=== PATIENT | female | born 2000 | race Caucasian/White ===

== ENCOUNTER → 2022-09-25 12:04 | Outpatient (BNVA) | payer BC, SELFPAY | PROVIDERS: Visit Provider Nurse Practitioner Family | DX: J02.9 Acute pharyngitis, unspecified (principal) | CPT/HCPCS: 87880 ==

== ENCOUNTER 2023-10-12 23:10 | Emergency (ER) | payer BC, SELFPAY ==
[2023-10-12 23:15] VITALS: BP 141/98; PULSE 83; RESP 18; TEMP 36.6; O2SAT 100
--- NOTE | 2023-10-13 01:11 | ED_ITS ---
HPI - Abdominal Pain 2 General: Chief Complaint: Abdominal Pain Stated Complaint: N/V Abd pain Time Seen by Provider: 10/12/23 23:55 History of Present Illness: Patient presents to the ER with episodic nausea vomiting and diarrhea with abdominal pain. This all started today. She says she is about ready start her period. She normally gets an episode like this 1 time when she starts her period but this is been multiple times throughout the day and worse in severity. Related Data: Date of Last Menstrual Period: 09/16/23 Review of Systems 2 General: Reports: 10 or more systems reviewed and unremarkable except in HPI and below [facility] 2 Female Reproductive History: Date of last menstrual period: 09/16/23 Physical Exam 2 Const: COMMON NORMALS: no acute distress, average body habitus, patient oriented x3, no limitations, healthy appearing, alert and well nourished HENMT: COMMON NORMALS: normocephalic, atraumatic, hearing grossly normal bilaterally, external ears normal, Normal external nose present and moist oral mucous membranes HEAD & SCALP: normocephalic and atraumatic NOSE: Normal external nose present EXTERNAL EAR: Yes external ears normal Neck/C-Spine: COMMON NORMALS: no JVD Resp: COMMON NORMALS: normal respiratory effort, No retractions, No use of accessory muscles and clear to auscultation bilaterally AUSCULTATION: clear to auscultation bilaterally Cardio: COMMON NORMALS: no JVD, regular rate, regular rhythm, S1 normal heart sound present, S2 normal heart sound present, No gallops present (Cardio), No clicks present (Cardio), No murmurs present (Cardio) and No rub (Cardio) R ATE: regular rate RHYTHM: regular rhythm HEART SOUNDS: S1 normal heart sound present and S2 normal heart sound present GI: COMMON NORMALS: Normal to inspection, nondistended, normoactive bowel sounds present, Soft to palpation, No hepatosplenomegaly present and no masses; negative for non-tender (Mildly tender to palpate upper abdomen worse over epigastric area) PALPATION: Yes Soft to palpation and Yes No hepatosplenomegaly present Neuro: COMMON NORMALS: patient oriented x3 SENSORIUM/ORIENTATION: Yes alert Course 2 Vital Signs: Vital signs: Vital Signs Temperature 97.9 F 10/12/23 23:15 Pulse Rate 80 10/13/23 01:30 Respiratory Rate 16 10/13/23 01:30 Blood Pressure 107/54 10/13/23 01:30 Pulse Oximetry 100 10/13/23 01:30 Oxygen Delivery Me thod Room Air 10/12/23 23:15 MDM - Abdominal Pain Medical Decision Making Patient has abdominal pain intermittently. Patient lab work did not include CBC CMP lipase and urinalysis, all of which was essentially benign, urinalysis did not show possibly urinary tract infection however was not a very good specimen. Will go ahead and treat as patient is having abdominal pain. Patient be discharged home. Differential Diagnosis Likely abdominal pain Medical Records I reviewed the patient's medical records. Lab Data I reviewed the patient's lab results. 10/13/23 01:00 10/13/23 01:00 Labs/Radiology: Laboratory Results WBC 9.90 10^3/uL (3.29-11.43) 10/13/23 01:00 RBC 4.67 10^6/uL (3.85-5.65) 10/13/23 01:00 Hgb 13.00 g/dL (11.27-16.99) 10/13/23 01:00 Hct 40.2 % (36-47) 10/13/23 01:00 MCV 86.1 fl (85-98) 10/13/23 01:00 MCH 27.8 pg (27-33) 10/13/23 01:00 MCHC 32.3 g/dL (30-55) 10/13/23 01:00 RDW 12.5 % (12.1-15.1) 10/13/23 01:00 Plt Count 264 10^3/cmm (157-399) 10/13/23 01:00 MPV 9.9 fL (7.4-10.4) 10/13/23 01:00 Neut % (Auto) 75.7 % 10/13/23 01:00 Lymph % (Auto) 16.1 % 10/13/23 01:00 [place] % (Auto) 6.4 % 10/13/23 01:00 Eos % (Auto) 1.4 % 10/13/23 01:00 Baso % (Auto) 0.2 % 10/13/23 01:00 Neut # (Auto) 7.50 10^3/uL (1.8-7.7) 10/13/23 01:00 Lymph # (Auto) 1.6 10^3/uL (0.8-4.8) 10/13/23 01:00 [place] # (Auto) 0.6 10^3/uL (0.2-0.9) 10/13/23 01:00 Eos # (Auto) 0.1 10^3/uL (0.0-0.8) 10/13/23 01:00 Baso # (Auto) 0.0 10^3/uL (0.0-0.1) 10/13/23 01:00 Nucleated RBC % (auto) 0 % 10/13/23 01:00 Nucleated RBCs # 0.0 /100WBC 10/13/23 01:00 Sodium 138 mmol/L (136-145) 10/13/23 01:00 Potassium 3.4 mmol/L (3.5-5.1) L 10/13/23 01:00 Chloride 105 mmol/L (98-107) 10/13/23 01:00 Carbon Dioxide 24 mmol/L (22-29) 10/13/23 01:00 Anion Gap 12.4 (5-19) 10/13/23 01:00 BUN 13 mg/dL (6-20) 10/13/23 01:00 Creatinine 0.7 mg/dL (0.5-0.9) 10/13/23 01:00 GFR Calculation 103.7 mL/min (90-130) 10/13/23 01:00 Glucose 99 mg/dL (65-115) 10/13/23 01:00 Calculated Osmolality 286 mOsm/kg (285-295) 10/13/23 01:00 Calcium 8.9 mg/dL (8.5-10.5) 10/13/23 01:00 Total Bilirubin 0.4 mg/dL (0.15-1.2) 10/13/23 01:00 AST 13 U/L (0-32) 10/13/23 01:00 ALT 6 U/L (0-33) 10/13/23 01:00 Alkaline Phosphatase 79 U/L (35-105) 10/13/23 01:00 Total Protein 7.3 g/dL (6.6-8.7) 10/13/23 01:00 Albumin 3.9 g/dL (3.5-5.2) 10/13/23 01:00 Globulin 3.4 g/dL (1.3-4.6) 10/13/23 01:00 Lipase 23 U/L (13-60) 10/13/23 01:00 Urine Color Yellow (Yellow) 10/13/23 01:50 Urine Appearance Slightly cloudy (CLEAR) 10/13/23 01:50 Urine pH 5 (5-7) 10/13/23 01:50 Ur Specific [place] 1.030 (1.005-1.030) 10/13/23 01:50 Urine Protein Trace (Negative) 10/13/23 01:50 Urine Glucose (UA) Norm (Normal) 10/13/23 01:50 Urine Ketones Negative (Negative) 10/13/23 01:50 Urine Blood Neg (Negative) 10/13/23 01:50 Urine Nitrate Negative (Negative) 10/13/23 01:50 Urine Bilirubin 1+ (Negative) H 10/13/23 01:50 Urine Urobilinogen Neg mg/dL (Negative) 10/13/23 01:50 Ur Leukocyte Esterase 2+ (Negative) H 10/13/23 01:50 Urine RBC 0-4 /hpf (0-2) H 10/13/23 01:50 Urine WBC 15-25 /hpf (0-5) H 10/13/23 01:50 Ur Squamous Epith Cells 25-40 /hpf (0-5) H 10/13/23 01:50 Amorphous Sediment Not Reportable 10/13/23 01:50 Urine Bacteria 3+ /hpf (NONE) H 10/13/23 01:50 Urine Mucus 2+ /hpf 10/13/23 01:50 All radiology interpretation(s) finalized by discharge Discharge Plan Discharge Patient Disposition: Home Clinical Impression: Urinary tract infection Qualifiers: Urinary tract infection type: acute cystitis Hematuria presence: with hematuria Qualified Code(s): N30.01 - Acute cystitis with hematuria Abdominal pain Qualifiers: Abdominal location: unspecified location Qualified Code(s): R10.9 - Unspecified abdominal pain Condition: Stable Prescriptions: New ciprofloxacin HCl 500 mg tablet 500 mg PO Q12H Qty: 20 0RF No Action citalopram 20 mg tablet 20 mg PO DAILY methylphenidate HCl 20 mg tablet 20 mg PO BID nadolol 20 mg tablet 20 mg PO DAILY citalopram 10 mg tablet 10 mg PO DAILY amoxicillin 875 mg tablet 875 mg PO BID 7 Days Qty: 14 0RF Discharge Orders: Discharge ED (Routine); Ordered 10/13/23 Ordered By: Alex Mackenzie Patient Instructions: Abdominal Pain (ED), Urinary Tract Infection - Women Activity Restrictions/Additional Instructions: Please take all your medicine as directed. Please follow-up within approximately show the next 7 to 10 days for further evaluation and treatment. Thank you for choosing [facility] for your healthcare needs today. Please realize that you were seen in the emergency department and that we are providing you with an emergency medical screening exam and this may not be a complete and all exclusive of all testing and/or medical workup we may need to determine your element or severity of your illness. It is very important that you follow-up as instructed with your primary care provider or specialist for the additional evaluation and to discuss your medical treatment plan. You may return to the emergency department should you have concerns or if your condition changes or worsens in any way. Stand Alone Forms: Work/School Release Coding Level of Care Code ED Parks Recreation Director for Alexander Larios
[2023-10-13 01:20] LABS: Basophils % 0.2 %; Eosinophils # 0.1 10^3/uL (0.0-0.8); Eosinophils % 1.4 %; Hematocrit 40.2 % (36-47); Lymphocytes # 1.6 10^3/uL (0.8-4.8); Lymphocytes % 16.1 %; Mean Corpuscular HGB Conc 32.3 g/dL (30-55); Mean Corpuscular Hemoglobin 27.8 pg (27-33); Mean Corpuscular Volume 86.1 fl (85-98); Mean Platelet Volume 9.9 fL (7.4-10.4); Monocytes # 0.6 10^3/uL (0.2-0.9); Monocytes % 6.4 %; Neutrophils % 75.7 %; Nucleated Red Blood Cells % 0 %; Platelet Count 264 10^3/cmm (157-399); Red Blood Count 4.67 10^6/uL (3.85-5.65); Red Cell Distribution Width 12.5 % (12.1-15.1)
[2023-10-13 01:30] VITALS: BP 107/54; PULSE 80; RESP 16; O2SAT 100
[2023-10-13 01:42] LABS: Alanine Aminotransferase 6 U/L (0-33); Albumin Level 3.9 g/dL (3.5-5.2); Alkaline Phosphatase 79 U/L (35-105); Anion Gap 12.4 (5-19); Aspartate Amino Transferase 13 U/L (0-32); Blood Urea Nitrogen 13 mg/dL (6-20); Calcium 8.9 mg/dL (8.5-10.5); Carbon Dioxide 24 mmol/L (22-29); Chloride 105 mmol/L (98-107); Globulin 3.4 g/dL (1.3-4.6); Glomerular Filtration Rate 103.7 mL/min (90-130); Glucose 99 mg/dL (65-115); Lipase 23 U/L (13-60); Osmolality Calculated 286 mOsm/kg (285-295); Potassium 3.4 mmol/L (3.5-5.1); Sodium 138 mmol/L (136-145); Total Bilirubin 0.4 mg/dL (0.15-1.2); Total Protein 7.3 g/dL (6.6-8.7)
[2023-10-13 02:17] LABS: Add Urine Microscopic? YES; Bilirubin Urine 1+ (Negative); Blood Urine Neg (Negative); Glucose Urine UA Norm (Normal); Ketones Urine Negative (Negative); Leukocyte Esterase Urine 2+ (Negative); Nitrate Urine Negative (Negative); Protein Urine Trace (Negative); RBC Urine 0-4 /hpf (0-2); Urine Appearance Slightly Cloudy (CLEAR); Urine Color Yellow (Yellow); Urobilinogen Urine Neg (Negative); WBC Urine 15-25 /hpf (0-5); pH Urine 5 (5-7)
[2023-10-13 02:18] LABS: Add Urine Culture? No; Bacteria Urine 3+ /hpf; Mucus Urine 2+ /hpf; Squamous Epithelial Cell Urine 25-40 /hpf (0-5)
[2023-10-13 02:53] VITALS: PULSE 95; RESP 16; O2SAT 96
== END 2023-10-13 02:40 | disposition home or self-care (01) ==
PROVIDERS: Emergency Provider Emergency Medicine
DX: N30.01 Acute cystitis with hematuria (principal); R10.9 Unspecified abdominal pain
CPT/HCPCS: 36415; 80053; 81001; 83690; 85025; 99283

== ENCOUNTER → 2024-08-25 14:46 | Outpatient (BNVA) | payer BC, SELFPAY | PROVIDERS: PCP Family Medicine; Visit Provider Internal Medicine | DX: R07.9 Chest pain, unspecified (principal) | CPT/HCPCS: 93005 ==

== ENCOUNTER 2024-09-06 09:01 | Emergency (ER) | payer BC, SELFPAY ==
--- NOTE | 2024-09-06 09:08 | XRR_ITS ---
PROCEDURE INFORMATION: Exam: XR Chest Exam date and time: 09/06/2024 9:23 AM Age: 24 years old Clinical indication: Pain; Chest pressure; Additional info: Dyspnea/cough TECHNIQUE: Imaging protocol: Radiologic exam of the chest. Views: 1 view. COMPARISON: No relevant prior studies available. FINDINGS: Lungs: No focal infiltrates seen of the lungs. Pleural spaces: No large or obvious pneumothorax nor pleural effusion seen. Heart/Mediastinum: Heart size appears within normal. Bones/joints: Mild curvature spine. XR/XR chest 1V portable [id number] IMPRESSION: No acute findings seen of the chest.
--- NOTE | 2024-09-06 09:08 | ECG_ITS ---
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 Measurements Intervals [place] Rate: 73 P: 58 ND: 188 QRS: 67 QRSD: 97 T: 44 QT: 416 QTc: 461 Interpretive Statements SINUS RHYTHM Compared to ECG 08/25/2024 14:55:08 No significant changes Electronically Signed On 09-08-2024 06:19:08 CDT by Tommy Abbott M.D. [email or web address]
[2024-09-06 09:14] VITALS: BP 124/74; PULSE 77; RESP 16; TEMP 36.9; O2SAT 100
[2024-09-06 09:56] LABS: Basophils % 0.3 %; Eosinophils # 0.2 10^3/uL (0.0-0.8); Eosinophils % 2.1 %; Hematocrit 40.5 % (36-47); Lymphocytes # 2.7 10^3/uL (0.8-4.8); Lymphocytes % 29.7 %; Mean Corpuscular HGB Conc 31.9 g/dL (30-55); Mean Corpuscular Hemoglobin 27.9 pg (27-33); Mean Corpuscular Volume 87.7 fl (85-98); Mean Platelet Volume 9.8 fL (7.4-10.4); Monocytes # 0.7 10^3/uL (0.2-0.9); Monocytes % 7.9 %; Neutrophils % 59.8 %; Nucleated Red Blood Cells % 0 %; Platelet Count 291 10^3/cmm (157-399); Red Blood Count 4.62 10^6/uL (3.85-5.65); Red Cell Distribution Width 12.9 % (12.1-15.1); White Blood Count 9.03 10^3/uL (3.29-11.43)
[2024-09-06 10:15] LABS: Alanine Aminotransferase 9 U/L (0-33); Albumin Level 3.9 g/dL (3.5-5.2); Alkaline Phosphatase 74 U/L (35-105); Anion Gap 12.9 (5-19); Aspartate Amino Transferase 15 U/L (0-32); Blood Urea Nitrogen 7 mg/dL (6-20); Calcium 9.1 mg/dL (8.5-10.5); Carbon Dioxide 25 mmol/L (22-29); Chloride 104 mmol/L (98-107); Creatinine Clr Calc Pharmacy 165.0217; Globulin 3.5 g/dL (1.3-4.6); Glomerular Filtration Rate 122.8 mL/min (90-130); Glucose 76 mg/dL (65-115); Osmolality Calculated 283 mOsm/kg (285-295); Potassium 3.9 mmol/L (3.5-5.1); Sodium 138 mmol/L (136-145); Total Bilirubin 0.4 mg/dL (0.15-1.2); Total Protein 7.4 g/dL (6.6-8.7)
--- NOTE | 2024-09-06 12:05 | ED_ITS ---
HPI - Chest Pain 2 General: Chief Complaint: Chest Pain Stated Complaint: CP/tightness Time Seen by Provider: 09/06/24 09:03 History of Present Illness: 24-year-old female presents emergency ro om with 1 week of intermittent chest pain. Patient reports she will get bursts of chest pain that she described as extremely intense that last for 1 to 3 seconds at times will radiate towards her left shoulder she also notes she can reproduce it with deep inspiration. No recent illness fever sweats or chills. No vomiting no diarrhea no hematochezia or melena. Associated symptoms: Deny abdominal pain, dyspnea or fever(s) Related Data Previous Rx's ?Medication ?Instructions ?Recorded nadolol 20 mg tablet 20 mg PO DAILY #90 tabs 01/22 09/13 citalopram 10 mg tablet 10 mg PO DAILY #90 tabs 06/21 07/15 citalopram 20 mg tablet 20 mg PO DAILY #90 tabs 06/21 07/15 methylphenidate HCl 10 mg tablet 10 mg PO BID 30 days #60 tabs 07/04/24 Allergies Allergy/AdvReac Type Severity Reaction Status Date / Time bee venom protein (honey bee) Allergy Unknown Verified 08/25/24 15:07 Review of Systems 2 Const: Denies: fever(s) or chills Card: Reports: chest pain Resp: Denies: dyspnea GI: Denies: abdominal pain : Denies: dysuria, urinary frequency or urinary urgency Musc: Denies: neck pain or back pain Skin/Breast: Denies: rash PFSH ED 2 PFSH: Medical History Long QT syndrome type 1 Moderate major depression ADHD Family history of long QT syndrome Surgical History History of hymenectomy History of tonsillectomy Family History Grandfather Long QT interval Social History Smoking and tobacco/nicotine status: never used tobacco/nicotine Alcohol intake: current Alcohol intake frequency: few times a month Alcohol type: wine Substance/Drug Use: current Physical Exam 2 Const: COMMON NORMALS: no acute distress GENERAL APPEARANCE: cooperative and comfortable ORIENTATION/CONSCIOUSNESS: Yes awake, Yes oriented to person, Yes oriented to place and Yes oriented to time HENMT: COMMON NORMALS: normocephalic, atraumatic and hearing grossly normal bilaterally HEAD & SCALP: normocephalic and atraumatic Resp: COMMON NORMALS: normal respiratory effort, No retractions, No use of accessory muscles and clear to auscultation bilaterally AUSCULTATION: clear to auscultation bilaterally Cardio: COMMON NORMALS: regular rate, regular rhythm and No murmurs present (Cardio) RATE: regular rate RHYTHM: regular rhythm GI: COMMON NORMALS: Soft to palpation and No hepatosplenomegaly present A USCULTATION: Yes normoactive bowel sounds PALPATION: Yes Soft to palpation, No Tenderness to palpation present (GI), No Guarding due to palpation present (GI) and Yes No hepatosplenomegaly present Extremity: COMMON NORMALS: normal to inspection, capillary refill normal, no clubbing, cyanosis or edema, no calf tenderness and no pedal edema Neuro: SENSORIUM/ORIENTATION: Yes oriented to person, Yes oriented to place and Yes oriented to time Skin: COMMON NORMALS: no rashes or lesions noted GENERAL SKIN EXAM: no rashes or lesions noted Course 2 Vital Signs: Vital signs: Vital Signs Temperature 98.5 F 09/06/24 09:14 Pulse Rate 69 09/06/24 12:42 Respiratory Rate 16 09/06/24 09:14 Blood Pressure 109/62 09/06/24 12:42 Pulse Oximetry 97 09/06/24 12:42 Oxygen Delivery Me thod Room Air 09/06/24 12:19 MDM - Chest Pain Medical Decision Making Laboratory tests are unremarkable. Patient's Chest Pain Sounds Noncardiac in Nature Sounds More Pleuritic Possibly Esophageal Spasm. Think She Can Safely Go Home at This Point Use Tylenol and Ibuprofen As Needed Recommend We Will Start Her on Proton Pump Inhibitor to Use Regularly until She Follows up with Her Primary Care Doctor Medical Records I reviewed the patient's medical records. Lab Data I reviewed the patient's lab results. 09/06/24 09:40 09/06/24 09:40 Radiology Impressions Chest X-Ray 09/06/24 09:08 IMPRESSION: No acute findings seen of the chest. Laboratory Results WBC 9.03 10^3/uL (3.29-11.43) 09/06/24 09:40 RBC 4.62 10^6/uL (3.85-5.65) 09/06/24 09:40 Hgb 12.90 g/dL (11.27-16.99) 09/06/24 09:40 Hct 40.5 % (36-47) 09/06/24 09:40 MCV 87.7 fl (85-98) 09/06/24 09:40 MCH 27.9 pg (27-33) 09/06/24 09:40 MCHC 31.9 g/dL (30-55) 09/06/24 09:40 RDW 12.9 % (12.1-15.1) 09/06/24 09:40 Plt Count 291 10^3/cmm (157-399) 09/06/24 09:40 MPV 9.8 fL (7.4-10.4) 09/06/24 09:40 Neut % (Auto) 59.8 % 09/06/24 09:40 Lymph % (Auto) 29.7 % 09/06/24 09:40 [place] % (Auto) 7.9 % 09/06/24 09:40 Eos % (Auto) 2.1 % 09/06/24 09:40 Baso % (Auto) 0.3 % 09/06/24 09:40 Neut # (Auto) 5.40 10^3/uL (1.8-7.7) 09/06/24 09:40 Lymph # (Auto) 2.7 10^3/uL (0.8-4.8) 09/06/24 09:40 [place] # (Auto) 0.7 10^3/uL (0.2-0.9) 09/06/24 09:40 Eos # (Auto) 0.2 10^3/uL (0.0-0.8) 09/06/24 09:40 Baso # (Auto) 0.0 10^3/uL (0.0-0.1) 09/06/24 09:40 Nucleated RBC % (auto) 0 % 09/06/24 09:40 Nucleated RBCs # 0.0 /100WBC 09/06/24 09:40 Sodium 138 mmol/L (136-145) 09/06/24 09:40 Potassium 3.9 mmol/L (3.5-5.1) 09/06/24 09:40 Chloride 104 mmol/L (98-107) 09/06/24 09:40 Carbon Dioxide 25 mmol/L (22-29) 09/06/24 09:40 Anion Gap 12.9 (5-19) 09/06/24 09:40 BUN 7 mg/dL (6-20) 09/06/24 09:40 Creatinine 0.6 mg/dL (0.5-0.9) 09/06/24 09:40 GFR Calculation 122.8 mL/min (90-130) 09/06/24 09:40 Glucose 76 mg/dL (65-115) 09/06/24 09:40 Calculated Osmolality 283 mOsm/kg (285-295) L 09/06/24 09:40 Calcium 9.1 mg/dL (8.5-10.5) 09/06/24 09:40 Total Bilirubin 0.4 mg/dL (0.15-1.2) 09/06/24 09:40 AST 15 U/L (0-32) 09/06/24 09:40 ALT 9 U/L (0-33) 09/06/24 09:40 Alkaline Phosphatase 74 U/L (35-105) 09/06/24 09:40 Total Protein 7.4 g/dL (6.6-8.7) 09/06/24 09:40 Albumin 3.9 g/dL (3.5-5.2) 09/06/24 09:40 Globulin 3.5 g/dL (1.3-4.6) 09/06/24 09:40 All radiology interpretation(s) finalized by discharge EKG Data EKG 1: Interpretation: EKG 09/06/2024 9:12 AM normal sinus rhythm rate of 73 [place] interval 188 QTc 461 no changes compared to 08/25/2024 Discharge Plan Discharge Patient Disposition: Home Clinical Impression: Non-cardiac chest pain Condition: Stable Prescriptions: No Action citalopram 20 mg tablet 20 mg PO DAILY Qty: 90 1RF citalopram 10 mg tablet 10 mg PO DAILY Qty: 90 1RF methylphenidate HCl 10 mg tablet 10 mg PO BID 30 Days Qty: 60 0RF nadolol 20 mg tablet 20 mg PO DAILY Qty: 90 0RF Discharge Orders: Discharge ED (Routine); Ordered 09/06/24 Ordered By: Pal Nguyen Referrals: Shad King MD [Primary Care Provider, Family Practice] Discharge Diet: Usual diet Discharge Activity: Increase activity as tolerated Patient Instructions: Opioid Safety, Pain Management Activity Restrictions/Additional Instructions: Thank you for choosing [facility] for your healthcare needs today. It is very important that you follow up as instructed or that you return to the Emergency Department should you have concerns or if your condition changes or worsens in any way. You were seen in the emergency room with complaints of chest discomfort that is noncardiac in description your EKG was normal. Your other laboratory tests are normal. Suspect the chest pain is pleuritic in nature. You can use Tylenol or ibuprofen. Follow-up with your primary care doctor. Print Language: Belgian Coding Level of Care Code ED Ems Instructor for Alexander Larios
[2024-09-06 12:19] VITALS: BP 107/66; PULSE 79; O2SAT 97
[2024-09-06 12:42] VITALS: BP 109/62; PULSE 69; O2SAT 97
== END 2024-09-06 12:43 | disposition home or self-care (01) ==
PROVIDERS: Emergency Provider Family Medicine; PCP Family Medicine
DX: R07.89 Other chest pain (principal)
CPT/HCPCS: 36415; 71045; 80053; 85025; 93005; 99285